=== PATIENT | male | born 1950 | race Caucasian/White ===

== ENCOUNTER 2016-07-30 12:36 | Emergency (ER) | payer MEDICARE, OTHER ==
--- NOTE | ~2016-07-30 | ER ---
PATIENT'S NAME: ARLEEN JONES [facility] AGE: 65 Y [address] ROOM: [place] [id number] LOCATION: [facility] ADMIT DATE: 07/30/2016 ER/Outpatient Report DISCHARGE DATE: FAMILY PHYSICIAN: Jorge L Craig MD ATTENDING PHYSICIAN: Ish To SEEN AT: 1245 hours. CHIEF COMPLAINT: Heaviness in the left arm. HISTORY OF PRESENT ILLNESS: The patient is a 65-year-old white male. The patient states that he just returned from [place] within the last 24 hours. He states on Friday, he was seen in the emergency room with the diagnosis of possible TIA. The patient presented to the emergency room at that time with some numbness involving his face and left arm. CT of his brain and workup was evidently normal. The patient decided that he would prefer to return to [place] before any further workup was done. Today, his symptoms continue to include some numbness on the left side of his face and his left arm. The patient's big change is that his left arm felt heavier. Denied any headache, but does complain of some vision changes. ALLERGIES: NONE GIVEN. CURRENT MEDICATIONS: See copied list, which was reviewed. MEDICAL HISTORY: Coronary artery disease. Hypertension. He has had no previous strokes or TIAs. Degenerative arthritis. 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 He has had bilateral knee replacement. He has had open reduction of left forearm, UroLift, previous hernia surgery, and gallbladder appendectomy. SOCIAL HISTORY: Nonsmoker. Denies alcohol use. He is . The patient is from [place]. REVIEW OF SYSTEMS: GENERAL: Today, no recent fevers or illness. PATIENT'S NAME: ARLEEN JONES [facility] AGE: 65 Y [address] ROOM: [place], [place] [address] LOCATION: [facility] ADMIT DATE: 07/30/2016 ER/Outpatient Report DISCHARGE DATE: FAMILY PHYSICIAN: Jorge L Craig MD ATTENDING PHYSICIAN: Ish To HEAD/EENT: The patient when arrived complained of no headache, neck pain, or sore throat. RESPIRATORY: No shortness of breath or cough. CARDIOVASCULAR: No recent chest pain or heart palpitations. Supposedly does have a history of atrial fib. GASTROINTESTINAL: No change in weight. Denies any black stools. GENITOURINARY: He has had some problems with enlarged prostate. No recent dysuria. NEURO/PSYCH: Recent weakness. Paresthesia involving his face and left arm. PHYSICAL EXAMINATION: VITAL SIGNS: Blood pressure on arrival was 139/89, his temperature was 97.8, his respiratory rate 20, pulse 78, and O2 saturations 96%. GENERAL APPEARANCE: White male, appears obviously anxious, but is oriented x3. HEAD: No exostosis deformity. EYES: Pupils appeared equal and reactive to light. Extraocular muscles appeared intact. Visual gaines appeared grossly normal. NOSE: Septum midline. MOUTH: Tongue was midline. Buccal membranes moist. NECK: No bruits noted. No adenopathy. LUNGS: Lungs sounded somewhat diminished, but clear. HEART: Heart tones distant. Regular. ABDOMEN: Soft and nontender. EXTREMITIES: Some atrophy involving his right hand due to injury as a child. No dependent edema. NEURO: Stroke score was 3. LABS AND X-RAYS: EKG showed normal sinus rhythm, no presence of atrial fibrillation. Chest x- ray, heart size appeared maybe somewhat enlarged. CT showed no acute changes as well as his MRI. ASSESSMENT: Left facial paresis also involving his left arm and weakness with a normal MRI and CT scan. The patient was referred to Dr. To for further evaluation. He was also was seen by Dr. Salazar, neurologist, here in the emergency room. Please refer to his neurological consult and also Dr. Rausch' evaluation. JOSE KEEN FOR MD VEDA GRANADO/ivone PATIENT'S NAME: ARLEEN JONES [facility] AGE: 65 Y [address] ROOM: [place], [place] [address] LOCATION: [facility] ADMIT DATE: 07/30/2016 ER/Outpatient Report DISCHARGE DATE: FAMILY PHYSICIAN: Jorge L Craig MD ATTENDING PHYSICIAN: Ish To /[id number] d: 07/30/162236 t: 08/13/16 214, OUTPATIENT REPORT
--- NOTE | ~2016-07-30 | ER ---
PATIENT'S NAME: ARLEEN JONES [facility] AGE: 65 Y [address] ROOM: [place], [place] [address] LOCATION: [facility] ADMIT DATE: 07/30/2016 ER/Outpatient Report DISCHARGE DATE: FAMILY PHYSICIAN: Jorge L Craig MD ATTENDING PHYSICIAN: Ish To HISTORY OF PRESENT ILLNESS: I saw this patient in conjunction with Ceasar Tim PA-C. Please see his dictation for details of HPI. In short, this gentleman has a history of anxiety and multiple medical conditions and recent surgeries, who has significant left-sided weakness. This started on Friday while in [place]. He was evaluated at that time and discharged with possible TIA. He presented to his local physician's office this morning where he is evaluated by JOSE and was convinced he was having stroke-like symptoms. He ultimately came here for evaluation. I did speak directly with his primary care doctor, Dr. Jroge L Craig. The patient received a CT scan, EKG, labs, and MRI of the brain. No significant findings on that workup. The patient developed some headache and unusual left-sided symptoms. The symptoms were more of a spastic rigidity rather than flaccidity associated with stroke. Dr. Salazar, neurologist, came and evaluated the patient as well. MRI is negative. The patient was treated with Compazine and Benadryl and had near complete resolution of all of his symptoms. The patient does not require any changes to his medications at this time. He will need to follow up with Dr. Craig later this week. He should return as needed. MD CLAUDIO GRANADO/ivone /[id number] d: 07/30/162228 t: 08/05/16 0648, OUTPATIENT REPORT
[~2016-07-30 12:36] MED LIST: ACEBUTOLOL HCL200 MG PO; AMOXICILLIN500 MG PO; ASPIRIN LO-DOSE81 MG PO; ATIVAN 1 MG1 MG PO; AUGMENTIN875 MG PO; BAYER CHEWABLE81 MG PO; CARAFATE1 GM PO; CLARITIN10 M3 PO; CLARITIN10 MG PO; COZAAR50 MG PO; DELTASONE10 MG PO; FEOSOL325 MG PO; FLONASE 50 MCG/16 GM NOSE; K-TAB 10MEQ10 MEQ PO; LASIX20 MG PO; MAG-OX-400(241400 MG PO; MULTIVITAMINS1 EAC1 PO; NAPROSYN500 MG PO; NITROSTAT 0.40.4 MG SL; NORCO 5-325 TA1 EACH PO; NORVASC2.5 MG PO; OMEPRAZOLE40 MG PO; PERCOCET 5-3251 EACH PO; PREVALITE (=4 GM/PKT PO; PRILOSEC20 MG PO; PRILOSEC40 MG PO; QUESTRAN PACKET4 GM PO; RANEXA ER500 MG PO; RYTHMOL150 MG PO; ULTRAM50 MG PO; VOLTAREN50 MG PO; ZANTAC (NON-FO150 MG PO; ZOCOR20 MG PO; ZOCOR40 MG PO
[2016-07-30 13:03] LABS: BASOPHIL # 0.1 K/uL (0.0-0.2); BASOPHIL % 0.9 %; EOSINOPHIL # 0.2 K/uL (0.0-0.5); EOSINOPHIL % 2.2 %; HEMATOCRIT 44.5 % (37.0-53.0); HEMOGLOBIN 15.1 g/dL (11.0-16.0); IMMATURE GRANULOCYTE % 0.2 %; LYMPHOCYTE % 21.9 %; MCH 32.1 pg (27.0-34.0); MCHC 33.9 gm/dL (32.0-36.5); MCV 94.5 fl (83.0-98.0); MONOCYTE # 1.1 K/uL (0.0-1.0); MONOCYTE % 11.9 %; MPV 9.5 fl (9.4-12.4); NEUTROPHIL # (ANC) 5.6 K/uL (1.4-9.0); NEUTROPHIL % 62.9 %; NRBC % 0 /100WBC (0-0.00); PLATELET COUNT 229 K/uL (150-450); RBC 4.71 M/uL (3.50-5.50); RDW-CV 14.4 % (11.9-14.6)
[2016-07-30 13:11] LABS: INR - (THERAPEUTIC) 1.02 (0.92-1.07); PROTIME 10.7 SECONDS (9.8-11.4); PTT 25 SECONDS (25-32)
[2016-07-30 13:26] LABS: ALBUMIN 3.6 gm/dL (3.5-5.0); ALK PHOS 79 IU/L (33-138); ALT 30 IU/L (12-78); ANION GAP 9.9 (10.0-19.0); AST 19 IU/L (10-40); BLOOD UREA NITROGEN 14 mg/dL (6-24); CALCIUM 8.4 mg/dL (8.5-10.5); CHLORIDE 110 mMol/L (96-110); CO2 24 mMol/L (22-32); CPK 52 IU/L (35-332); CREATININE 0.9 mg/dL (0.6-1.3); ESTIMATED GFR (MDRD EQUATION) > 60; MAGNESIUM 2.2 mg/dL (1.3-2.6); POTASSIUM 3.9 mMol/L (3.7-5.1); SODIUM 140 mMol/L (135-145); TOTAL BILIRUBIN 0.7 mg/dL (0.0-1.5); TOTAL PROTEIN 6.9 g/dL (6.0-8.4)
[2016-10-09] MEDS ORDERED: OMEPRAZOLE40 MG PO (15:36)
[2016-10-09] MEDS ORDERED: ZYRTEC10 MG PO (15:38)
[2016-10-09] MEDS ORDERED: LIPITOR40 MG PO (15:39)
[2016-10-09] MEDS ORDERED: XARELTO20 MG PO (15:39)
[2016-10-09] MEDS ORDERED: TYLENOL WITH C1 EACH PO (21:34)
== END 2016-07-30 16:30 | disposition disaster alternative care site (69) ==
LOC: GMED 12:36
PROVIDERS: Physician Assistant Medical
DX: G51.0 Bell's palsy (principal); I10 Essential (primary) hypertension; Z90.49 Acquired absence of other specified parts of digestive tract
CPT/HCPCS: J0780; J1200

== ENCOUNTER 2016-09-09 14:33 | Emergency (ER) | payer MEDICARE, OTHER ==
--- NOTE | ~2016-09-09 | ER ---
PATIENT'S NAME: ARLEEN JONES [facility] AGE: 66 Y [address] ROOM: [place], [place] [address] LOCATION: [facility] ADMIT DATE: 09/09/2016 ER/Outpatient Report DISCHARGE DATE: 09/09/2016 FAMILY PHYSICIAN: Jorge L Craig MD ATTENDING PHYSICIAN: Ish To Time of arrival: 1441. Time of exam: 1441. CHIEF COMPLAINT: Left facial pain. HISTORY OF PRESENT ILLNESS: The patient states that he had a root canal done on the left lower posterior tooth approximately 3 weeks ago. Did well for one week and then started having severe pain to his left cheek. He was seen by his dentist and also seen by his primary provider Dr. Craig in [place]. They started him on clindamycin and a Medrol Dosepak. He has taken the Dosepak and the clindamycin and continues to have the left cheek pain. He states it is painful to talk, it is painful to chew. He has tramadol at home, which is not helping. He does have Percocet at home, which he has taken, but does not like to take because it makes him loopy. ALLERGIES: MORPHINE. CURRENT MEDICATIONS: On his chart and reviewed by me. PAST MEDICAL HISTORY: Coronary artery disease, hypertension, arthritis, CVA. PAST SURGERIES: Open-heart surgery, Francisco fundoplication, hernia. SOCIAL HISTORY: Denies use of tobacco, drugs, or alcohol. REVIEW OF SYSTEMS: All negative other than those mentioned in the HPI. PHYSICAL EXAMINATION: VITAL SIGNS: He weighs 106 kg. Blood pressure is 159/91, pulse is 66, respirations 16, temperature of 97.7 tympanic, O2 saturation was 95% on room PATIENT'S NAME: ARLEEN JONES [facility] AGE: 66 Y [address] ROOM: [place], [place] [address] LOCATION: [facility] ADMIT DATE: 09/09/2016 ER/Outpatient Report DISCHARGE DATE: 09/09/2016 FAMILY PHYSICIAN: Jorge L Craig MD ATTENDING PHYSICIAN: Ish To. Diana Coma Scale is 15. GENERAL: He is awake, alert, and oriented x4. SKIN: [place], warm, and dry. RESPIRATIONS: Even and nonlabored. HEENT: TMs are clear. Nasal is clear. Oropharynx shows some slight swelling of the left inner cheek area. He is tender to touch right at the mid cheek area on left side. No pain when palpating the TM joint. The patient was given Zofran 4 mg ODT and [place] 5/325 x2 tabs. EMERGENCY COURSE: CT scan was completed. Radiologist reports no abnormality seen. The patient did have an episode of mid chest pain. He states he has this often, did do an EKG showed sinus rhythm. I did call and make an appointment for patient to be seen by ENT, as soon as they can get him in is Friday09/13/16. He can see Dr. Newberry at that time. IMPRESSION: Face pain, left cheek pain. PLAN: Home, rest. Prescription was written for Percocet. He is to use soft foods. He is to see Dr. Newberry on Friday09/13/2016 at 1 o'clock. He and his verbalized understanding. JING FULLER APRN FOR MD JOVITA GRANADO/ivone /[id number] d: 09/10/16209 t: 09/24/16 1933, OUTPATIENT REPORT
[2016-10-09] MEDS ORDERED: OMEPRAZOLE40 MG PO (15:36)
[2016-10-09] MEDS ORDERED: ZYRTEC10 MG PO (15:38)
[2016-10-09] MEDS ORDERED: LIPITOR40 MG PO (15:39)
[2016-10-09] MEDS ORDERED: XARELTO20 MG PO (15:39)
[2016-10-09] MEDS ORDERED: TYLENOL WITH C1 EACH PO (21:34)
== END 2016-09-09 17:05 | disposition disaster alternative care site (69) ==
LOC: GMED 14:33
DX: R51 Headache (principal); I10 Essential (primary) hypertension; I25.10 Atherosclerotic heart disease of native coronary artery without angina pectoris; Z88.5 Allergy status to narcotic agent; Z79.899 Other long term (current) drug therapy

== ENCOUNTER → 2016-10-09 | Day surgery (SDC) | payer MEDICARE, OTHER ==
[~2016-10-09] VITALS: Ht 180.3 cm; Wt 105.4 kg
[~2016-10-09] MED LIST changes: +LIPITOR40 MG PO; +TYLENOL WITH C1 EACH PO; +XARELTO20 MG PO; +ZYRTEC10 MG PO
--- NOTE | ~2016-10-09 | OR ---
PATIENT'S NAME: ARLEEN JONES [facility] AGE: 66 Y [address] ROOM: [place], [place] [address] [place] [facility] [place] DATE: 10/09/2016 OR/Procedure Report DISCHARGE DATE: FAMILY PHYSICIAN: Jorge L Craig MD ATTENDING PHYSICIAN: Pat Jackson SURGEON: Pat Jackson MD DRIVER TRAINER: DATE OF PROCEDURE: 10/09/2016 PREOPERATIVE DIAGNOSES: 1. Bilateral nonobstructing nephrolithiasis. 2. Bilateral flank pain. PROCEDURE PERFORMED: Cystoscopy, bilateral stent placement. ANESTHESIA: General. COMPLICATIONS: None. INDICATION FOR PROCEDURE: The patient is a 66-year-old male, complaining of bilateral flank pain, more severe on the left than the right. A CT scan revealed bilateral nonobstructing nephrolithiasis. Informed the patient it is an unlikely source of his pain since there is no hydronephrosis or evidence of obstruction. However, the patient complains of severe pain and insists upon stent placement. The patient does have a prior history of nephrolithiasis and previous stent placement. DETAILS OF PROCEDURE: After an informed consent was obtained, the patient was taken to the operating room. A general anesthetic was applied. He was placed in the dorsal lithotomy position. The groin area was prepped and draped in normal sterile fashion. Cystoscope was introduced into the urethra and bladder without difficulty. First, the left ureteral orifice was identified and cannulated with a guidewire up into the renal pelvis. A 6-Yakut multi- length ureteral stent was then passed over the guidewire up into the renal pelvis. Radiographic imaging showed good position of the stent. This was then repeated on the contralateral side. Again, radiographic imaging showed good position of the stent. The bladder was emptied and the procedure terminated. The patient tolerated the procedure well and was transferred to recovery room in good condition. PAT JACKSON MD PATIENT'S NAME: ARLEEN JONES [facility] AGE: 66 Y [address] ROOM: [place], [place] [address] [place] [facility] [place] DATE: 10/09/2016 OR/Procedure Report DISCHARGE DATE: FAMILY PHYSICIAN: Jorge L Craig MD ATTENDING PHYSICIAN: Pat Jackson/ivone /[id number] CC: Jorge L Craig MD d: 10/10/16 0135 t: 10/28/16 1010, OPERATIVE SUMMARY
== END ==
LOC: GPOC 14:00 → GSDC 16:37
PROC: 0T788DZ Dilation of Bilateral Ureters with Intraluminal Device, Via Natural or Artificial Opening Endoscopic (ICD-10-PCS; principal; 2016-10-09)
DX: N20.0 Calculus of kidney (principal); K21.9 Gastro-esophageal reflux disease without esophagitis; E78.5 Hyperlipidemia, unspecified; I10 Essential (primary) hypertension; Z79.891 Long term (current) use of opiate analgesic; Z79.899 Other long term (current) drug therapy; Z88.5 Allergy status to narcotic agent; Z79.2 Long term (current) use of antibiotics
CPT/HCPCS: C1769; J1956; J2001; J2550; J3010; J7030

== ENCOUNTER → 2016-10-15 | Outpatient (CLI) | payer MEDICARE, OTHER | END | disposition disaster alternative care site (69) | LOC: GRAD 09:35 | DX: N20.0 Calculus of kidney (principal); Z96.0 Presence of urogenital implants ==

== ENCOUNTER 2016-11-01 07:35 | Emergency (ER) | payer MEDICARE, OTHER ==
--- NOTE | ~2016-11-01 | ER ---
PATIENT'S NAME: ARLEEN JONES [facility] AGE: 66 Y [address] ROOM: [place] [address] LOCATION: [facility] ADMIT DATE: 11/01/2016 ER/Outpatient Report DISCHARGE DATE: 11/01/2016 FAMILY PHYSICIAN: Jorge L Craig MD ATTENDING PHYSICIAN: Torsten Israel Admission date and time documented in the medical record. I saw the patient at 0750 hours. CHIEF COMPLAINT: Mid anterior chest pain and heaviness with some shortness of breath and lightheadedness. HISTORY OF PRESENT ILLNESS: This patient is a 66-year-old male who, around 0530 hours, had an episode where he went into atrial fibrillation. He then developed some deep mid anterior chest pain with some shortness of breath. The atrial fibrillation episode resolved. He converted to a sinus rhythm on the way here to the emergency department. Presently, here in the emergency department, he has no chest pain. He is short of breath. Legs feel heavy. He is really tired and still a little bit lightheaded. He was so lightheaded he almost fell at home. No nausea, vomiting, or diarrhea. No urinary symptoms. No recent colds, coughs, flus, fever, chills, or sweats. The patient is known to have atrial fibrillation and is undergoing ablation therapy this coming Friday. He does have a history of CVA. No endocrine problems or psychiatric issues. HOME MEDICATIONS: See attached medication list. ALLERGIES: MORPHINE SULFATE. SOCIAL HISTORY: Nonsmoker and nondrinker. SIGNIFICANT PAST MEDICAL HISTORY: Atherosclerotic ischemic heart disease with nonobstructive coronary artery disease, nephrolithiasis, hypertension, degenerative osteoarthritis, cerebrovascular accident, history of myocardial bridging, dyslipidemia, paroxysmal atrial fibrillation, degenerative joint disease, gastroesophageal reflux, and anxiety. OPERATIONS: Bilateral total knee arthroplasties, open heart surgery with unroofing of myocardial bridge, left wrist surgery, Francisco fundoplication, incisional PATIENT'S NAME: ARLEEN JONES [facility] AGE: 66 Y [address] ROOM: [place] [address] LOCATION: [facility] ADMIT DATE: 11/01/2016 ER/Outpatient Report DISCHARGE DATE: 11/01/2016 FAMILY PHYSICIAN: Jorge L Craig MD ATTENDING PHYSICIAN: Torsten Israel herniorrhaphy x2, dental surgery, cystoscopy with bilateral stent placements, lithotripsy, cardiac catheterization, tonsillectomy, cholecystectomy, appendectomy, and right hand surgery. REVIEW OF SYSTEMS: All systems reviewed by me are negative with the exception of those discussed in the History of Present Illness. PHYSICAL EXAMINATION: VITAL SIGNS: See nurse's note in regard to vital signs. I did review these on the chart. HEAD: Normocephalic. EYES, EARS, NOSE, AND THROAT: Clear. NECK: No nuchal rigidity. No thyromegaly or cervical adenopathy. LUNGS: Clear. Good air flow. No rales, rhonchi, or wheezes. HEART: Regular. Pulses are palpable. ABDOMEN: Soft, nondistended, and nontender. Good bowel tones. No organomegaly or abnormal masses palpable. EXTREMITIES: Without peripheral edema, cyanosis, or deformity. Neurovascularly intact. SKIN: Clear. No skin eruptions or rash. LABORATORY AND DIAGNOSTIC DATA: EKG x2, two hours apart, showed first-degree AV block, sinus rhythm. No acute ST elevation, ischemic change, or arrhythmia. The patient's CPK, CK-MB, and troponin were initially normal and were normal at 2 hours. CMS was normal except for an elevated glucose of 150 and low calcium of 8.4. CRP was less than 0.29. TSH was 2.12. The proBNP was 85. White count was 7100 with 59 segs, 22 lymphs, 15 monos, 3 eos, and 1 baso; hemoglobin was 14.8 with hematocrit 42.5; and platelet count was 220,000. PTT was 32, prothrombin time was 12.5 with an INR of 1.19. D-dimer was normal at less than 0.19. Chest x- ray showed no acute infiltrate. We will review x-ray with the radiologist. IMPRESSION: 1. Mid anterior chest pain with shortness of breath following an episode of transient atrial fibrillation. He also had accompanied lightheadedness and severe fatigue and tiredness. 2. History of paroxysmal atrial fibrillation. 3. Atherosclerotic ischemic heart disease with nonobstructive coronary artery disease. 4. Past history of myocardial bridging with open heart surgery to unroof the myocardial bridge. 5. Hypertension. 6. History of cerebrovascular accident. 7. Gastroesophageal reflux. PATIENT'S NAME: ARLEEN JONES [facility] AGE: 66 Y [address] ROOM: [place] [address] LOCATION: [facility] ADMIT DATE: 11/01/2016 ER/Outpatient Report DISCHARGE DATE: 11/01/2016 FAMILY PHYSICIAN: Jorge L Craig MD ATTENDING PHYSICIAN: Torsten Israel 8. Anxiety. PLAN: The patient is dismissed to home. Observation. Activity as tolerated. Continue present home medications and care. Follow up with personal physician as needed. He is scheduled to have a cardiac ablation done on this coming Friday. Discussion ensued with the patient concerning my findings and recommendations, he understands. MD ARIELLE SNEED/modl /[id number] d: 11/01/16 1635 t: 11/02/16 0612, OUTPATIENT REPORT
[2016-11-01 07:55] LABS: BASOPHIL # 0.1 K/uL (0.0-0.2); BASOPHIL % 0.7 %; EOSINOPHIL # 0.2 K/uL (0.0-0.5); EOSINOPHIL % 3.4 %; HEMATOCRIT 42.5 % (37.0-53.0); HEMOGLOBIN 14.8 g/dL (11.0-16.0); IMMATURE GRANULOCYTE % 0.3 %; LYMPHOCYTE # 1.5 K/uL (0.8-4.0); LYMPHOCYTE % 21.7 %; MCH 34.2 pg (27.0-34.0); MCHC 34.8 gm/dL (32.0-36.5); MCV 98.2 fl (83.0-98.0); MONOCYTE % 14.6 %; MPV 9.5 fl (9.4-12.4); NEUTROPHIL # (ANC) 4.2 K/uL (1.4-9.0); NEUTROPHIL % 59.3 %; NRBC % 0 /100WBC (0-0.00); PLATELET COUNT 220 K/uL (150-450); RBC 4.33 M/uL (3.50-5.50); RDW-CV 13.3 % (11.9-14.6); WBC 7.1 K/uL (4.0-11.0)
[2016-11-01 08:03] LABS: INR - (THERAPEUTIC) 1.19 (0.92-1.07); PROTIME 12.5 SECONDS (9.8-11.4)
[2016-11-01 08:05] LABS: PTT 32 SECONDS (25-32)
[2016-11-01 08:14] LABS: ALBUMIN 3.6 gm/dL (3.5-5.0); ALK PHOS 93 IU/L (33-138); ALT 36 IU/L (12-78); ANION GAP 12.1 (10.0-19.0); AST 21 IU/L (10-40); BLOOD UREA NITROGEN 16 mg/dL (6-24); CALCIUM 8.4 mg/dL (8.5-10.5); CHLORIDE 108 mMol/L (96-110); CO2 25 mMol/L (22-32); CPK 64 IU/L (35-332); CREATININE 1.2 mg/dL (0.6-1.3); MAGNESIUM 2.1 mg/dL (1.8-2.6); POTASSIUM 4.1 mMol/L (3.7-5.1); SODIUM 141 mMol/L (135-145); TOTAL BILIRUBIN 0.7 mg/dL (0.0-1.5); TOTAL PROTEIN 6.8 g/dL (6.0-8.4)
[2016-11-01 10:21] LABS: CPK 55 IU/L (35-332)
== END 2016-11-01 10:43 | disposition disaster alternative care site (69) ==
LOC: GMED 07:35
PROVIDERS: Emergency Medicine
DX: R07.89 Other chest pain (principal); I48.91 Unspecified atrial fibrillation; I25.10 Atherosclerotic heart disease of native coronary artery without angina pectoris; K21.9 Gastro-esophageal reflux disease without esophagitis; F41.9 Anxiety disorder, unspecified; Z98.890 Other specified postprocedural states; Z88.2 Allergy status to sulfonamides; Z96.653 Presence of artificial knee joint, bilateral; Z86.73 Personal history of transient ischemic attack (TIA), and cerebral infarction without residual deficits; Z90.49 Acquired absence of other specified parts of digestive tract; Z90.89 Acquired absence of other organs